=== PATIENT | female | born 1985 | race Caucasian/White ===

== ENCOUNTER → 2016-06-24 | Outpatient (CLI) | payer OTHER, MEDICAID ==
[~2016-06-24] MED LIST: ALEVE 220MG220 MG PO; NORCO 325 MG-7.1 TAB PO
== END ==
LOC: MHCPAIN 09:18
DX: G89.29 Other chronic pain (principal); M47.817 Spondylosis without myelopathy or radiculopathy, lumbosacral region; M53.3 Sacrococcygeal disorders, not elsewhere classified
CPT/HCPCS: G0463

== ENCOUNTER → 2016-07-03 | Outpatient (CLI) | payer OTHER, MEDICAID | LOC: MHCPAIN 10:26 | DX: M53.3 Sacrococcygeal disorders, not elsewhere classified (principal) | CPT/HCPCS: G0260; J1040; Q9967 ==

== ENCOUNTER → 2016-08-11 | Outpatient (CLI) | payer MEDICAID | LOC: MHCPAIN 12:39 | DX: G89.29 Other chronic pain (principal); M47.817 Spondylosis without myelopathy or radiculopathy, lumbosacral region; M51.16 Intervertebral disc disorders with radiculopathy, lumbar region; M53.3 Sacrococcygeal disorders, not elsewhere classified | CPT/HCPCS: G0463 ==

== ENCOUNTER → 2016-08-21 | Outpatient (CLI) | payer MEDICAID | LOC: MHCPAIN 09:12 | DX: M47.817 Spondylosis without myelopathy or radiculopathy, lumbosacral region (principal) | CPT/HCPCS: J1040; Q9967 ==

== ENCOUNTER → 2016-08-26 | Outpatient (CLI) | payer MEDICAID | LOC: MHCPAIN 12:50 | DX: G89.29 Other chronic pain (principal); M47.817 Spondylosis without myelopathy or radiculopathy, lumbosacral region; M53.3 Sacrococcygeal disorders, not elsewhere classified | CPT/HCPCS: G0463 ==

== ENCOUNTER → 2016-12-08 | Outpatient (CLI) | payer MEDICAID | LOC: MHCPAIN 11:42 | DX: G89.29 Other chronic pain (principal); M47.817 Spondylosis without myelopathy or radiculopathy, lumbosacral region; M53.3 Sacrococcygeal disorders, not elsewhere classified; F17.210 Nicotine dependence, cigarettes, uncomplicated | CPT/HCPCS: G0463 ==

== ENCOUNTER 2019-01-21 10:04 | Emergency (ER) | payer MEDICAID ==
[~2019-01-21] VITALS: Ht 157.5 cm; Wt 96.8 kg
[2019-01-21] MEDS ORDERED: ZANAFLEX 4MG TAB4 MG PO (10:20)
[2019-01-21] MEDS ORDERED: VISTARIL50 MG PO (10:20)
[2019-01-21] MEDS ORDERED: PREDNISONE20 MG PO (10:21)
[2019-01-21] MEDS ORDERED: XANAX 1MG1 MG PO (10:22)
[2019-01-21] MEDS ORDERED: MOBIC 7.5MG7.5 MG PO (10:23)
[2019-01-21] MEDS ORDERED: MOBIC 7.5MG7.5 MG (10:23)
[2019-01-21] MEDS ORDERED: EFFE25TA PO (10:23)
[2019-01-21] MEDS ORDERED: MOTRIN 800800 MG/TAB PO (10:24)
[2019-01-21 10:52] LABS: COLLECTION METHOD CLEAN CATCH
[2019-01-21 10:53] VITALS: BP 131/80; PULSE 88
[2019-01-21 10:57] LABS: BASO % 0.3 % (0.0-2.0); EOS # 0.1 (0.0-0.7); EOS % 0.5 % (0-4.0); GRAN # 9.6 (1.4-6.5); HEMATOCRIT 41.9 % (37.0-47.0); LYMPH # 4.1 (1.2-3.4); MEAN CELL VOLUME 85 fl (80.0-100.0); MEAN CORPUSCULAR HEMOGLOBIN 28 pg (27.0-31.0); MEAN CORPUSCULAR HGB CONC 33 g/dl (33.0-37.0); MEAN PLATELET VOLUME 9.9 fl (7.4-10.4); MONO # 0.8 (0.1-0.6); MONO % 5.7 % (1.7-9.3); PLATELET COUNT 277 K/mm3 (130-400); RED BLOOD COUNT 4.96 M/mm3 (4.10-5.30); REDCELL DISTRIBUTION WIDTH-CV 12.8 % (11.5-14.5)
[2019-01-21 10:58] LABS: MUCOUS Present /lpf; PH 5 (5-8); SQUAMOUS EPITHELIAL 0-2 /hpf; URINE APPEARANCE Clear; URINE BACTERIA Rare /hpf; URINE BILIRUBIN Negative (NEGATIVE); URINE BLOOD 1+ (NEGATIVE); URINE COLOR Yellow; URINE GLUCOSE Negative (NEGATIVE); URINE KETONE Negative (NEGATIVE); URINE LEUKOCYTE ESTERASE Negative (NEGATIVE); URINE NITRATE Negative (NEGATIVE); URINE PROTEIN(semi-quant) Negative (NEGATIVE); URINE UROBILINOGEN Negative (NEGATIVE)
[2019-01-21 11:09] LABS: ALBUMIN 4.2 gm/dL (3.5-5.0); BILIRUBIN,TOTAL 0.1 mg/dL (0.0-1.0); C-REACTIVE PROTEIN 0.6 mg/dL (0.0-0.9); CALCIUM 9.3 mg/dL (8.4-10.2); CREATININE, serum 0.83 (0.52-1.25); POTASSIUM 3.6 mmol/L (3.4-5.0); TOTAL PROTEIN 7.6 gm/dL (6.4-8.2)
[2019-01-21 11:47] VITALS: TEMP 98.2
== END 2019-01-21 11:47 | disposition home or self-care (01) ==
LOC: COL.ER 10:04
PROVIDERS: Physician Assistant
DX: T39.395A Adverse effect of other nonsteroidal anti-inflammatory drugs [NSAID], initial encounter (principal); F17.210 Nicotine dependence, cigarettes, uncomplicated; Z88.0 Allergy status to penicillin